=== PATIENT | male | born 1945 | race Caucasian/White ===

== ENCOUNTER 2024-09-25 10:00 | Emergency (ER) | payer BC ==
[~2024-09-25] VITALS: Ht 180.3 cm; Wt 81.6 kg
[2024-09-25 11:36] VITALS: BP 154/91; O2SAT 99
== END 2024-09-25 11:36 | disposition home or self-care (01) ==
LOC: ER 10:11
DX: R60.9 Edema, unspecified (principal); M25.561 Pain in right knee; Z60.2 Problems related to living alone
CPT/HCPCS: 93971-TC